=== PATIENT | female | born 1960 | race Caucasian/White ===

== ENCOUNTER → 2017-02-10 | Outpatient (CLI) | payer OTHER ==
--- NOTE | 2017-02-10 15:32 | RAD ---
DATE: 02/10/2017 EXAM: MAMMO ROMERO DIAG BILAT HISTORY: Greenish discharge from the left nipple COMPARISON: 12/10/2015 This study was interpreted with the benefit of Computerized Aided Detection (CAD ). FINDINGS: Breast Density: The breast parenchyma shows scattered fibroglandular densities. Breast parenchyma level B. No mass or suspect calcifications are seen in either breast. Occasional benign- appearing calcifications are noted in the breasts left greater than right. IMPRESSION: Benign findings. If additional evaluation for nipple discharge is warranted a galactogram could be performed BI-RADS CATEGORY: 2 BENIGN FINDING(S) RECOMMENDED FOLLOW-UP: 12M 12 MONTH FOLLOW-UP PQRS compliance statement: Patient information was entered into a reminder system with a target due date 02/10/2018 for the next mammogram. Mammography is a sensitive method for finding small breast cancers, but it does not detect them all and is not a substitute for careful clinical examination. A negative mammogram does not negate a clinically suspicious finding and should not result in delay in biopsying a clinically suspicious abnormality. "Our facility is accredited by the [employer] Mammography Program." MTDD
== END | disposition home or self-care (01) ==
LOC: MAMMO 14:07
PROVIDERS: ATTEND Nurse Practitioner
DX: N64.52 Nipple discharge (principal); R92.2 Inconclusive mammogram; N64.4 Mastodynia
CPT/HCPCS: G0204; G0279; 77062; 77066